=== PATIENT | female | born 1955 | race Caucasian/White ===

== ENCOUNTER 2022-08-07 04:02 | Emergency (ER) | payer BC, OTHER ==
[2022-08-07] MEDS ORDERED: methylPREDNISolone Sod Succ/PF 125 MG/2 ML VIAL ONE (04:30)
[2022-08-07] MEDS ORDERED: Famotidine/PF 20 mg/2ml Vial ONE (04:30)
[2022-08-07] MEDS ORDERED: diphenhydrAMINE 50 MG/ML VIAL ONE (04:30)
[2022-08-07] MEDS ORDERED: EPINEPHrine 1 MG/ML VIAL ONE (04:30)
== END 2022-08-07 06:47 | disposition home or self-care (01) ==
LOC: ERS 04:02
DX: T78.2XXA Anaphylactic shock, unspecified, initial encounter (principal)
CPT/HCPCS: 96372; 96374; 96375; J0171; J1200; J2930; S0028